=== PATIENT | female | born 1945 | race Two or more races ===

== ENCOUNTER 2021-08-26 14:39 | Emergency (ER) | payer OTHER ==
[~2021-08-26] VITALS: Ht 160 cm; Wt 72.1 kg
[2021-08-26] MEDS ORDERED: COZAAR100 MG PO (14:56)
[2021-08-26] MEDS ORDERED: ESCITALOPRA5 MG/5 ML PO (15:04)
[2021-08-26] MEDS ORDERED: LEVO-T112 MCG PO (15:05)
[2021-08-26] MEDS ORDERED: NORTRIPTYLINE H10 MG PO (15:05)
[2021-08-26] MEDS ORDERED: HYDRODIURIL12.5 MG PO (15:05)
== END 2021-08-26 17:59 | disposition home or self-care (01) ==
LOC: ER 14:39
DX: S01.92XA Laceration with foreign body of unspecified part of head, initial encounter (principal); W01.0XXA Fall on same level from slipping, tripping and stumbling without subsequent striking against object, initial encounter; Y93.9 Activity, unspecified; Y92.019 Unspecified place in single-family (private) house as the place of occurrence of the external cause; S69.91XA Unspecified injury of right wrist, hand and finger(s), initial encounter; Z88.2 Allergy status to sulfonamides; Z91.013 Allergy to seafood; I10 Essential (primary) hypertension; D64.89 Other specified anemias